=== PATIENT | female | born 1995 | race Caucasian/White ===

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

== ENCOUNTER 2017-01-08 18:11 | Emergency (ER) | payer BC | END 2017-01-08 19:07 | disposition home or self-care (01) | LOC: ER 18:11 | DX: M54.5 Low back pain (principal); J45.909 Unspecified asthma, uncomplicated; F98.8 Other specified behavioral and emotional disorders with onset usually occurring in childhood and adolescence ==